=== PATIENT | male | born 1935 | race Two or more races ===

== ENCOUNTER 2019-07-06 02:22 | Observation (INO) | payer MEDICARE ==
[2019-07-06 02:50] LABS: ABS Eosinophils 0.1 10^3/ul (0-0.6); ABS Lymphocytes 1.4 10^3/ul (1.0-4.8); ABS Monocytes 0.6 10^3/ul (0-0.8); ABS Neutrophils 6.4 10^3/ul (1.5-7.7); Eosinophil % 1.7 %; Hematocrit 46 % (42-52); Hemoglobin 15.5 g/dL (14.0-18.0); Lymphocyte % 15.8 %; Mean Corpuscular HGB Conc 34 g/dL (31-36); Mean Corpuscular Hemoglobin 30 pg (27-31); Mean Corpuscular Volume 87 fL (80-94); Mean Platelet Volume 7.2 fL (7.4-10.4); Platelet Count 178 10^3/uL (150-450); Red Blood Count 5.24 10^6 /uL (4.18-5.48); Red Cell Distribution Width 14 % (10-15); White Blood Count 8.6 10^3/uL (3.5-10.8)
--- NOTE | 2019-07-06 02:58 | ED ---
Shortness of Breath - HPI Summary HPI Summary: This patient is an 83 year old M presenting to ED with a chief complaint of SOB since 06/29/19. Patient has SOB when coughing, which is exacerbated by laying supine. Patient was seen [place] [facility] one [place] ago for the same symptoms and prescribed allergy medications. Patient feels that he is not improving with allergy medications. Patient has had seasonal allergies every year around this time living in [place], but this is worse than before. Patient usually exercises regularly, but has since stopped in the past month. Patient is under a lot of stress and has been around hospitals a lot since his is sick. The patient rates the pain 0/10 in severity. Symptoms aggravated by laying supine. Symptoms alleviated by nothing. Patient denies fever. Patient agrees to be admitted for observation. Patient is up to date on tetanus and pertussis. - History of Current Complaint Chief Complaint: EDShortnessOfBreath Time Seen by Provider: 07/06/19 02:32 Hx Obtained From: Patient Onset/Duration: Gradual Onset, Lasting Weeks - Since 06/29/19, Still Present, Worse Since Current Severity: Mild Dyspnea At: Orthopena Aggravating Factors: Recumbent Position Alleviating Factors: Nothing Associated Signs & Symptoms: Negative - Fever, Cough (Nonproductive) - Allergy/Home Medications Allergies/Adverse Reactions: Allergies Allergy/AdvReac Type Severity Reaction Status Date / Time BANDAIDS Allergy Mild MILD SKIN Uncoded 07/06/19 02:28 REDNESS SEASONAL ALLERGY Allergy RUNNY Uncoded 07/06/19 02:28 NOSE, SNEEZING, WATERY EYES PMH/Surg Hx/FS Hx/Imm Hx Musculoskeletal History: Reports: Hx Tendonitis - BILATERAL ELBOWS IN THE PAST, PT TOOK CARE Sensory History: Reports: Hx Cataracts - BILATERAL EYES, Hx Contacts or Glasses - READING GLASSES Denies: Hx Hearing Aid Opthamlomology History: Reports: Hx Cataracts - BILATERAL EYES, Hx Contacts or Glasses - READING GLASSES - Surgical History Surgery Procedure, Year, and Place: COLONOSCOPY EVERY 4 YEARS, [facility] [place]. 09/08/2012 CATARACT EXTRACTION RIGHT EYE WITH IOL IMPLANT, [facility] [place] Hx Anesthesia Reactions: No Infectious Disease History: No Infectious Disease History: Denies: Traveled Outside the [place] in Last 30 Days - Family History Known Family History: Negative: Respiratory Disease - Social History Alcohol Use: None Hx Substance Use: No Substance Use Type: Reports: None Hx Tobacco Use: No Smoking Status (MU): Never Smoked Tobacco Review of Systems Negative: Fever Positive: Shortness Of Breath, Cough All Other Systems Reviewed And Are Negative: Yes Physical Exam - Summary Physical Exam Summary: Constitutional: Well-developed, Well-nourished, Alert. (-) Distressed Skin: Warm, Dry HENT: Normocephalic; Atraumatic Eyes: Conjunctiva normal Neck: Musculoskeletal ROM normal neck. (-) JVD, (-) Stridor, (-) Nuchal rigidity Cardio: Rhythm regular, rate normal, Heart sounds normal; Intact distal pulses; Radial pulses are 2+ and symmetric (-) Murmur Pulmonary/Chest wall: Effort normal. (-) Respiratory distress, (-) Wheezes, (-) Rales Abd: Soft, (-) tenderness, (-) Distension, (-) Guarding, (-) Rebound Musculoskeletal: (-) Edema Lymph: (-) Cervical adenopathy Neuro: Alert, Oriented x3 Psych: Mood and affect Normal Triage Information Reviewed: Yes Vital Signs On Initial Exam: Initial Vitals Temp Pulse Resp BP Pulse Ox 98.0 F 73 20 164/80 97 07/06/19 02:24 07/06/19 02:24 07/06/19 02:24 07/06/19 02:24 07/06/19 02:24 Vital Signs Reviewed: Yes Diagnostics - Vital Signs Vital Signs Temp Pulse Resp BP Pulse Ox 07/06/19 02:24 98.0 F 73 20 164/80 97 - Laboratory Lab Results: Lab Results 07/06/19 Range/Units 02:42 WBC 8.6 (3.5-10.8) 10^3/uL RBC 5.24 (4.18-5.48) 10^6 /uL Hgb 15.5 (14.0-18.0) g/dL Hct 46 (42-52) % MCV 87 (80-94) fL MCH 30 (27-31) pg MCHC 34 (31-36) g/dL RDW 14 (10-15) % Plt Count 178 (150-450) 10^3/uL MPV 7.2 L (7.4-10.4) fL Neut % (Auto) 74.6 % Lymph % (Auto) 15.8 % Duval % (Auto) 7.4 % Eos % (Auto) 1.7 % Baso % (Auto) 0.5 % Absolute Neuts (auto) 6.4 (1.5-7.7) 10^3/ul Absolute Lymphs (auto) 1.4 (1.0-4.8) 10^3/ul Absolute Monos (auto) 0.6 (0-0.8) 10^3/ul Absolute Eos (auto) 0.1 (0-0.6) 10^3/ul Absolute Basos (auto) 0.0 (0-0.2) 10^3/ul Absolute Nucleated RBC 0.0 10^3/ul Nucleated RBC % 0.0 Result Diagrams: 07/06/19 02:42 07/06/19 02:42 Lab Statement: Any lab studies that have been ordered have been reviewed, and results considered in the medical decision making process. - Radiology CXR Radiology Interpretation Completed By: ED Physician Summary of Radiographic Findings: Unchanged from prior, no consolidation, pending official radiology report. - EKG 0256 Cardiac Rate: NL - 68 BPM EKG Rhythm: Sinus Rhythm Summary of EKG Findings: NSR at 68 BPM, RBBB, T wave inversions in lead III and V1. Course/Dx - Course Course Of Treatment: 83-year-old male with seasonal allergies presents with cough and fatigue. Physical exam of the dry cough, lungs clear. Not hypoxic. Differential includes allergic rhinitis, pneumonia, upper respiratory infection. Labs without leukocytosis, sodium 124 without prior history of hyponatremia. Patient denies infectious of water intake, diuretics. States he does not drink lots of water but does not appear dry on exam. Chest x-ray without obvious infiltrate. Will send urine Legionella given cough, hyponatremia and recent hospital exposure with his . Given 1 L of normal saline, send urine electrolytes. Albuterol for persistent cough. Patient is up -to-date on pertussis vaccination, lower suspicion for pertussis. - Diagnoses Provider Diagnoses: Hyponatremia - Physician Notifications Discussed Care of Patient With: Pratibha Shore Time Discussed With Above Provider: 04:24 Instructed by Provider To: Admit As Inpatient - Discussed patient case with Dr. Shore, hospitalist, who accepted the patient for admission to [facility] [place]. Discharge ED - Sign-Out/Discharge Documenting (check all that apply): Patient Departure - Admit Patient Received Moderate/Deep Sedation with Procedure: No - Discharge Plan Condition: Fair Disposition: ADMITTED TO [facility] Referrals: Paul Hardin MD [Primary Care Provider] - - Billing Disposition and Condition Condition: FAIR Disposition: Admitted to [facility] - Attestation Statements Document Initiated by John: Yes Documenting Scribe: Francis Schmidt Provider For Whom John is Documenting (Include Credential): Isabella Lee MD Scribe Attestation: I, Francis Schmidt, scribed for Isabella Lee MD on 07/06/19 at 0442. Scribe Documentation Reviewed: Yes Provider Attestation: The documentation as recorded by the Francis harry accurately reflects the service I personally performed and the decisions made by me, Isabella Lee MD Status of Scribe Document: Viewed
[2019-07-06 03:05] LABS: Albumin 4.3 g/dL (3.2-5.2); Albumin/Globulin Ratio 1.5 (1-3); BUN/Creatinine Ratio 12.1 (8-20); Calcium 9.1 mg/dL (8.6-10.3); EGFR African American 96.8 (>60); Globulin 2.8 g/dL (2-4); Total Bilirubin 0.7 mg/dL (0.2-1.0); Total Protein 7.1 g/dL (6.4-8.9)
[2019-07-06] MEDS ORDERED: Albuterol (2.5 MG) 0.5 % CONC 2.5 MG/0.5 ML NEB.SOLN (ICU and ED only) INH ONE (03:22)
[2019-07-06] MEDS: NS 0.9% 1000 ML** 1,000 ML IV ONE ×2 (03:50→03:51)
[2019-07-06] MEDS ORDERED: GuaiFENesin DM* 5 ML UDC PO PRN (05:22)
[2019-07-06] MEDS ORDERED: Enoxaparin(*) 30 MG/0.3 ML SYR SUBCUT SCH (06:00)
[2019-07-06] MEDS ORDERED: guaiFENesin/CODIEN 100MG-10MG* 5 ML UDC PO SCH (06:00)
--- NOTE | 2019-07-06 07:29 | ADMNOTE ---
Subjective Date of Service: 07/06/19 Interval History: 83 year old male with no medical history presents with 2 weeks history of relentless cough which started first as "allergies". The cough has become distressing to him causing him anxiety and shortness of breath. He has been examined previously and prescribed flonase for allergies. He didnt feel that helped his cough too much. He has never had anything like this before. In the ED , vitals are good but his initial labs showed acute hyponatremia. Pt said his is terminal and lives in a fpc. He has been spending most of his time with her and eats the low-sodium food there. He has medical hx and takes no medications. He denies EDMONDSON, fatigue, diarrhea. Review of Systems - Measurements Intake and Output: Intake and Output Last 24 Hours 07/04/19 07/05/19 07/06/19 07/07/19 06:59 06:59 06:59 06:59 Weight 155 lb - Review of Systems Constitutional Symptoms: Negative: Weight Gain, Weight Loss, Weakness, Fatigue, Fever, Night Sweats, Unexplained Falls, Other Dermatology: Negative: Normal, Rash, Skin Lesions, Cancer, Skin Lumps, Other HEENT: Positive: Sinus Problem Negative: Normal, Change in Hearing, Vertigo, Dental Problems, Tinnitus, Other Eyes: Negative: Normal, Change in Vision, Double Vision, Eye Pain, Glaucoma, Cataract, Contacts or Glasses, Other Thyroid: Positive: Normal Pulmonary: Positive: Cough, Shortness of Breath Cardiology: Negative: Normal, Chest Pain, Shortness of Breath, Palpitations, Swelling of Ankles, Peripheral Vascular Dis, Edema, Faintness, Syncope, Claudication, Proximal NocturnalDyspnea, Orthopnoea, Other Gastroenterology: Negative: Normal, Abdominal Pain, Nausea, Vomiting, Anorexia, Indigestion, Difficulty Swallowing, Heartburn, Constipation, Diarrhea, Blood in Stools, Change in Bowel Habits, Haematemesis, Melena, Other Genital - Urinary: Negative: Normal, Dysuria, Hematuria, Polyuria, Nocturia, Other Musculoskeletal: Negative: Joint Pain, Joint Stiffness, Arthritis, Osteoporosis, Low Back Pain , Sciatica, Joint Deformities, Kyphoscoliosis, Other Neurology: Negative: Normal, Headache, Migraines, Change in Vision, Diplopia, Dizziness , Change in Balancing, Change in Coordination, Change in Memory, Change in Speech, Change in Sphincter Function, Change in Walking, Numbness\\Paresthesiae, Unexplained Weakness, Hx of Stroke\\TIA, Hx of Seizures, Other Psychiatry: Negative: Normal, Depression, Anxiety, Depressed Mood, Anhedonia, Sexual Dysfunction, Weight Change, Guilt Feelings, Tearfulness, Unusual Fatigue, Unusual Anxiety, Suicidal Ideation, Hypomania, Eating Disorders, Other Objective Active Medications: Enoxaparin Sodium (Lovenox(*)) 30 mg SUBCUT Q24H MICK Last Admin: 07/06/19 06:23 Dose: 30 mg Guaifenesin/Dextromethorphan (Robitussin Dm*) 10 ml PO Q6H PRN PRN Reason: COUGH Last Admin: 07/06/19 06:51 Dose: 10 ml Vital Signs - 8 hr 07/06/19 07/06/19 07/06/19 02:24 02:37 02:38 Temperature 98.0 F Pulse Rate 73 75 69 Respiratory 20 Rate Blood Pressure 164/80 165/81 (mmHg) O2 Sat by Pulse 97 96 99 Oximetry 07/06/19 07/06/19 07/06/19 03:08 03:38 04:00 Temperature Pulse Rate 70 65 63 Respiratory Rate Blood Pressure 161/84 134/75 (mmHg) O2 Sat by Pulse 99 98 98 Oximetry 07/06/19 07/06/19 07/06/19 04:09 04:22 04:38 Temperature Pulse Rate 70 72 68 Respiratory 20 Rate Blood Pressure 152/74 133/68 (mmHg) O2 Sat by Pulse 95 99 95 Oximetry 07/06/19 07/06/19 07/06/19 05:00 05:08 05:38 Temperature Pulse Rate 83 71 71 Respiratory Rate Blood Pressure 133/73 133/67 (mmHg) O2 Sat by Pulse 85 95 94 Oximetry 07/06/19 06:14 Temperature 98.9 F Pulse Rate 88 Respiratory 21 Rate Blood Pressure 141/63 (mmHg) O2 Sat by Pulse 94 Oximetry Oxygen Devices in Use Now: None Eyes: No Scleral Icterus Ears/Nose/Mouth/Throat: NL Teeth, Lips, Gums, Clear Oropharnyx, Mucous Membranes Moist Neck: NL Appearance and Movements; NL JVP, Trachea Midline, No Thyroid Enlargement, Masses Respiratory: Symmetrical Chest Expansion and Respiratory Effort, Clear to Auscultation, Clear to Percussion, Clear to Palpation Cardiovascular: NL Sounds; No Murmurs; No JVD Abdominal: NL Sounds; No Tenderness; No Distention Lymphatic: No Cervical Adenopathy Skin: No Rash or Ulcers Neurological: Alert and Oriented x 3 Result Diagrams: 07/06/19 02:42 07/06/19 02:42 Additional Lab and Data: Lab Results 07/06/19 Range/Units 02:42 WBC 8.6 (3.5-10.8) 10^3/uL RBC 5.24 (4.18-5.48) 10^6 /uL Hgb 15.5 (14.0-18.0) g/dL Hct 46 (42-52) % MCV 87 (80-94) fL MCH 30 (27-31) pg MCHC 34 (31-36) g/dL RDW 14 (10-15) % Plt Count 178 (150-450) 10^3/uL MPV 7.2 L (7.4-10.4) fL Neut % (Auto) 74.6 % Lymph % (Auto) 15.8 % Motley % (Auto) 7.4 % Eos % (Auto) 1.7 % Baso % (Auto) 0.5 % Absolute Neuts (auto) 6.4 (1.5-7.7) 10^3/ul Absolute Lymphs (auto) 1.4 (1.0-4.8) 10^3/ul Absolute Monos (auto) 0.6 (0-0.8) 10^3/ul Absolute Eos (auto) 0.1 (0-0.6) 10^3/ul Absolute Basos (auto) 0.0 (0-0.2) 10^3/ul Absolute Nucleated RBC 0.0 10^3/ul Nucleated RBC % 0.0 Assess/Plan/Problems-Billing Assessment: - Patient Problems (1) Hyponatremia Current Visit: Yes Status: Acute Code(s): E87.1 - HYPO-OSMOLALITY AND HYPONATREMIA SNOMED Code(s): 64970706 Comment: acute hyponatremia. Asymptomatic. Likely from low sodium intake. Received fluids in the ED. Holding fluid now until next BMP. Advise to eat regular diet. (2) Cough in adult Current Visit: Yes Status: Acute Code(s): R05 - COUGH SNOMED Code(s): 94478212 Comment: nonproductive cough x 2 weeks with preceding upper respiratory symptoms CXR is clear, likely acute bronchitis. Started on robitussin. Pt would like to have legionella antigen done (3) Full code status Current Visit: Yes Status: Acute Code(s): Z78.9 - OTHER SPECIFIED HEALTH STATUS SNOMED Code(s): 220741886
[2019-07-06 07:38] LABS: Urine Potassium Concentration 61.3 mmol/L
[2019-07-06 07:44] LABS: BUN/Creatinine Ratio 12.7 (8-20); Calcium 8.3 mg/dL (8.6-10.3); EGFR African American 113.9 (>60); EGFR Non-African American 94.1 (>60); Potassium 4.2 mmol/L (3.5-5.0)
[2019-07-06 15:41] VITALS: BP 132/63
--- NOTE | 2019-07-06 17:13 | ECHO ---
*[facility]* [place] [address] Fax #: [phone] Transthoracic Echocardiogram Patient: Paul Love : 1935 Study Date: 07/06/2019 Age: 83 Gender: M HR: 74 bpm Height: 69 in /175.3 cm BSA: 1.85 m^2 Weight: 154.7 lb /70.3 kg BMI: 22.9 kg/m^2 *Librarian Head: * Edith Lawson [facility] *Referring Physician: * Krystian Bowden *Reading Physician: * Myra Damian MD Indications: SOB. History: Hyponatremia,RBBB. Conclusions Summary: - Left ventricle: Systolic function is vigorous. The estimated ejection fraction is 60-65%. Left ventricular diastolic function parameters are normal for the patient's age. - Right ventricle: Systolic function is normal. - All valves show good function. - No prior echocardiogram to compare. Study data: Transthoracic echocardiogram. Procedure: Transthoracic echocardiography was performed. Image quality was good. Complete 2D, spectral Doppler, and color flow Doppler. Patient status: Observation. Patient room number: 419-1. Rhythm: Normal sinus rhythm. Findings Left ventricle: The cavity size is normal. Wall thickness is normal. Systolic function is vigorous. The estimated ejection fraction is 60-65%. Wall motion is normal; there are no regional wall motion abnormalities. Left ventricular diastolic function parameters are normal for the patient's age. Right ventricle: Well visualized. The cavity size is normal. Wall thickness is normal. Systolic function is normal. Ventricular septum: Well visualized. Left atrium: Well visualized. The atrium is normal in size. Right atrium: Well visualized. The atrium is normal in size. Atrial septum: Well visualized. Mitral valve: Well visualized. The leaflets are mildly thickened. No echocardiographic evidence for prolapse. There is no evidence of stenosis. There is trace regurgitation. Aortic valve: Well visualized. The valve is trileaflet. The leaflets are normal thickness and mildly calcified. Cusp separation is normal. There is no evidence of stenosis. There is no significant regurgitation. Tricuspid valve: Well visualized. The leaflets are normal thickness. There is no evidence of stenosis. There is trace regurgitation. Pulmonic valve: Well visualized. The leaflets are normal thickness. There is no evidence of stenosis. There is no significant regurgitation. Aorta: The aorta is well visualized and normal size. The aortic arch appears normal. Pericardium: There is no pericardial effusion. No evidence of pleural fluid accumulation. Pulmonary arteries: Well visualized. Systolic pressure is within the normal range. Systemic veins: Well visualized. Inferior vena cava: There is (>= 50%) respiratory change in the IVC dimension. Pulmonary veins: Visualization of the pulmonary venous anatomy is incomplete, but a significant abnormality is unlikely. Measurements Left ventricle Value Ref Right atrium continued Value Ref NIYAH, LAX 4.9 cm 4.2 - ML dim, ES, A4C 2.7 cm 2.6 - 5.8 4.4 ESD, LAX 3.5 cm 2.5 - SI dim, ES, A4C 3.9 cm 3.4 - 4.0 5.3 FS, LAX 28 % 43 SI dim/bsa, ES, 2.1 cm/m^2 1.8 - PW, ED, LAX 0.8 cm 0.6 - A4C 3.0 1.0 Estimated RAP 3 mm Hg -------- FS 28 % Mid-wall FS 16 % -------- Aortic valve Value Ref PW, ED 0.8 cm 0.6 - Pilar diam, ED 2.2 cm -------- 1.0 Pilar diam/bsa, ED 1.2 cm/m^2 -------- PW/ID, ED 0.16 -------- Peak v, S 1.32 m/sec -------- E', lat pilar, TDI 12.2 cm/sec >=10.0 VTI, S 28.9 cm - ------- E/e', lat pilar, TDI 6 -------- Mean grad, S 4.0 mm Hg ---- ---- E', med pilar, TDI 9.3 cm/sec >=7.0 Peak grad, S 7.0 mm Hg - ------- E/e', med pilar, TDI 8 -------- LVOT/AV, VTI ratio 0.77 ---- ---- E', avg, TDI 10.8 cm/sec -------- E/e', avg, TDI 7 <=14 Mitral valve Value R ef Peak E 0.77 m/sec -------- LVOT Value Ref Peak A 0.95 m/sec -------- Peak cathi, S 1.09 m/sec -------- Decel time 215 ms -------- VTI, S 22.3 cm -------- Peak grad, D 2.4 mm Hg -------- Mean grad, S 2 mm Hg -------- Peak E/A ratio 0.8 -------- Ventricular septum Value Ref Pulmonic valve Value Ref IVS, ED 0.7 cm 0.6 - Peak v, S 0.96 m/sec -------- 1.0 Peak grad, S 4.0 mm Hg -------- Right ventricle Value Ref Aortic root Value Ref NIYAH, LAX 3.0 cm -------- Root diam 3.2 cm <4.0 NIYAH minor ax, A4C 2.8 cm 1.9 - Root max diam, ED 3.2 cm <4.0 mid 3.5 Aortic arch Value Ref Left atrium Value Ref Arch diam 2.2 cm -------- ML dim, A4C 2.8 cm -------- SI dim, A4C 3.7 cm -------- Decending aorta Value Ref Vol/bsa, ES, 1-p 14 ml/m^2 12 - 37 Daljit peak cathi 0.85 m/sec -------- A4C Vol/bsa, ES, A/L 23 ml/m^2 16 - 34 Right atrium Value Ref SI dim, ES 3.9 cm 3.4 - 5.3 Legend: (L) and (H) naima values outside specified reference range. Prepared and electronically signed by Myra Damian MD 07/06/2019 17:12
--- NOTE | 2019-07-06 20:47 | DS ---
CC: Dr. Hardin* DISCHARGE SUMMARY: DATE OF ADMISSION: 07/06/19 DATE OF DISCHARGE: 07/06/19 PRIMARY CARE PROVIDER: Dr. Paul Hardin. DISPOSITION ON DISCHARGE: Home. CONDITION ON DISCHARGE: Good. PRIMARY DIAGNOSIS: Unrelenting cough. SECONDARY DIAGNOSIS: Includes hyponatremia. MEDICATIONS ON DISCHARGE: Include: 1. Cetirizine 10 mg daily. 2. Flonase 2 sprays both nares daily. 3. Guaifenesin with dextromethorphan long acting 1 each every 12 hours. PERTINENT LABORATORY DATA DURING THIS ADMISSION: Sodium 124 on presentation, on discharge 127 after IV fluids. His BNP is 70. PERTINENT IMAGING DURING THIS ADMISSION: Transthoracic echocardiogram, impression: Left ventricular systolic function is vigorous. Estimated ejection fraction is 60% to 65%. LV diastolic function is normal for age. Right ventricular systolic function is normal. All valves show good function. No prior echocardiogram to compare to. HISTORY OF PRESENT ILLNESS AND HOSPITAL COURSE: This is an 83-year-old gentleman, relatively healthy, who does suffer from seasonal allergies and generally develops several weeks of cough with other sinus congestion around this time of the year. He states like clockwork over the last 40 years, he develops these symptoms again. Approximately 1 week prior, he saw his PCP and was started on cetirizine; however, did not improve. He returned to the emergency room. Because he has been visiting his at a subacute group home where she is currently actively dying on hospice, he felt that he was exposed to other illnesses from the other residents who had been coughing and he was concerned that he might have been sicker than usual. The cough has been similar to his previous coughs over the last decade; however, this one he felt was a little bit more severe in that he suffered from paroxysms of coughing and when he was coughing very heavily, it was hard for him to take a deep breath, though he did deny shortness of breath at rest or with ambulation and he had no evidence of hypoxia during the hospital stay. On my exam, he did have faint rales in his left base. No evidence of pneumonia was present on chest x-ray. I did have a concern for a possible early CHF exacerbation, although he has no known CHF history, neither diastolic nor systolic. For this reason, I checked a transthoracic echocardiogram, which was normal as indicated above. The patient was started on guaifenesin in the hospital. On discharge, to continue guaifenesin, although I see no prescriptions available [id number] for guaifenesin alone and so I have included Mucinex as well. The patient did not want to wait for his echocardiogram results, which I felt was appropriate. He was feeling well and he wanted to spend time with his , so he does not have the results as indicated above. If the patient's cough should continue and/or worsen, I would consider pneumonia as the etiology that has not yet blossomed or is seen on chest x-ray. He does have no laboratory evidence to support infectious etiology at this time either. At followup, please: 1. Evaluate for resolution of symptoms. 2. Consider repeat BMP for continued resolution of hyponatremia. 3. No other specific labs or vitals that need followup. Reasons to return to the hospital including, but not limited to recurrent or worsening symptoms, including worsening cough, fevers, chills, night sweats, chest pain, shortness of breath, nausea, vomiting, loss of consciousness, or near loss of consciousness were discussed with the patient and he acknowledged understanding. TIME SPENT: Greater than 45 minutes were spent on the discharge of this patient , greater than half was spent [id number] with the patient. [id number]/[facility] #: [id number]
== END 2019-07-06 16:05 | disposition home or self-care (01) ==
LOC: ED 02:22 → MED 05:10 → INTOOBSV 05:10
PROVIDERS: ADMIT Student in an Organized Health Care Education/Training Program; ATTEND Internal Medicine
DX: R05 Cough (principal); R06.02 Shortness of breath; E87.1 Hypo-osmolality and hyponatremia; Z79.899 Other long term (current) drug therapy; R94.31 Abnormal electrocardiogram [ECG] [EKG]
CPT/HCPCS: 36415; 71046; 80048; 80053; 82436; 83880; 84133; 84300; 85025; 87899; 93005; 93306; 99283; A9270-GY; G0378; J1650; J7611

== ENCOUNTER 2021-04-20 22:52 | Observation (INO) ==
[2021-04-20] MEDS ORDERED: NS 0.9% 1000 ml BAG 1,000 ML IV ONE (23:26)
[2021-04-20 23:50] LABS: ABS Lymphocytes 0.4 10^3/ul (1.0-4.8); ABS Monocytes 0.4 10^3/ul (0-0.8); ABS Neutrophils 4.8 10^3/ul (1.5-7.7); Hematocrit 41 % (42-52); Hemoglobin 13.8 g/dL (14.0-18.0); Lymphocyte % 7.1 %; Mean Corpuscular HGB Conc 34 g/dL (31-36); Mean Corpuscular Hemoglobin 29 pg (27-31); Mean Corpuscular Volume 86 fL (80-94); Mean Platelet Volume 7.6 fL (7.4-10.4); Platelet Count 135 10^3/uL (150-450); Red Cell Distribution Width 14 % (10-15); White Blood Count 5.6 10^3/uL (3.5-10.8)
[2021-04-20 23:57] LABS: INR 1.24 (0.82-1.09)
[2021-04-20 23:58] LABS: Albumin 3.8 g/dL (3.2-5.2); Anion Gap 9 mmol/L (2-11); CO2 Carbon Dioxide 22 mmol/L (22-32); Calcium 8.2 mg/dL (8.6-10.3); Chloride 94 mmol/L (101-111); Potassium 3.9 mmol/L (3.5-5.0); Sodium 125 mmol/L (135-145)
[2021-04-21 00:04] LABS: ALT 22 U/L (7-52); AST 76 U/L (13-39); Albumin/Globulin Ratio 1.3 (1-3); Alkaline Phosphatase 55 U/L (35-149); Blood Urea Nitrogen 27 mg/dL (6-24); Cholesterol 152 mg/dL; EGFR African American 63.8 (>60); EGFR Non-African American 52.7 (>60); Glucose 160 mg/dL (70-100); HDL Cholesterol 49.5 mg/dL; LDL Cholesterol 86 mg/dL; Total Protein 6.8 g/dL (6.4-8.9); Triglycerides 83 mg/dL
[2021-04-21 00:19] LABS: Troponin I 0.05 ng/mL (<0.03)
[2021-04-21] MEDS ORDERED: Iodixanol (CONTRAST) 320 MG/ML 100 ML SDV IV ONE (00:43)
[2021-04-21 02:46] LABS: Magnesium 1.8 mg/dL (1.9-2.7)
[2021-04-21 02:48] LABS: Urine Appearance Cloudy; Urine Bilirubin Negative (Negative); Urine Blood 2+ (Negative); Urine Color Yellow; Urine Glucose Negative (Negative); Urine Ketones Trace (Negative); Urine Nitrite Negative (Negative); Urine Protein 1+(30 mg/dL) (Negative); Urine Specific Gravity 1.014 (1.002-1.030); Urine Urobilinogen Negative (Negative)
[2021-04-21 02:52] LABS: Urine Bacteria Absent (Absent); Urine Red Blood Cell Trace(0-2/hpf) (Absent); Urine Squamous Epithelial Cell Present (Absent); Urine White Blood Cell Trace(0-5/hpf) (Absent)
[2021-04-21 03:11] LABS: Urine Potassium Concentration 51.4 mmol/L
[2021-04-21] MEDS ORDERED: NS 0.9% 1000 ml BAG 1,000 ML IV SCH (05:00)
[2021-04-21 05:25] LABS: Urine Creatinine Concentration 105.29 mg/dL
[2021-04-21 09:44] LABS: Troponin I 0.05 ng/mL (<0.03)
[2021-04-21 12:28] LABS: Troponin I 0.05 ng/mL (<0.03)
[2021-04-21 14:04] LABS: Calcium 7.2 mg/dL (8.6-10.3); Potassium 3.8 mmol/L (3.5-5.0)
[2021-04-21 14:10] LABS: EGFR African American 85.4 (>60); EGFR Non-African American 70.5 (>60)
[2021-04-22 11:28] LABS: Calcium 7.7 mg/dL (8.6-10.3); EGFR African American 85.4 (>60); EGFR Non-African American 70.5 (>60); Potassium 3.7 mmol/L (3.5-5.0)
[2021-04-22 12:19] VITALS: BP 118/53
== END 2021-04-22 14:50 | disposition home or self-care (01) ==
LOC: ED 22:52 → MEDTELE 22:52
PROVIDERS: ADMIT Student in an Organized Health Care Education/Training Program; ATTEND Hospitalist

== ENCOUNTER 2021-05-06 16:09 | Inpatient (IN) ==
[2021-05-06 18:26] LABS: Hematocrit 35 % (42-52); Hemoglobin 12.1 g/dL (14.0-18.0); Mean Corpuscular HGB Conc 35 g/dL (31-36); Mean Corpuscular Hemoglobin 29 pg (27-31); Mean Corpuscular Volume 84 fL (80-94); Mean Platelet Volume 8.2 fL (7.4-10.4); Platelet Count 72 10^3/uL (150-450); Red Blood Count 4.14 10^6 /uL (4.18-5.48); Red Cell Distribution Width 14 % (10-15)
[2021-05-06 18:34] LABS: Albumin 2.7 g/dL (3.2-5.2); Albumin/Globulin Ratio 0.9 (1-3); Calcium 7.4 mg/dL (8.6-10.3); EGFR African American 77.4 (>60); EGFR Non-African American 63.9 (>60); Globulin 2.9 g/dL (2-4); Potassium 3.7 mmol/L (3.5-5.0); Total Bilirubin 0.9 mg/dL (0.2-1.0); Total Protein 5.6 g/dL (6.4-8.9)
[2021-05-06 18:35] LABS: Troponin I 0.01 ng/mL (<0.03)
[2021-05-06 18:48] LABS: ABS Lymphocytes 1.2 10^3/ul (1.0-4.8); ABS Monocytes 0.5 10^3/ul (0-0.8); ABS Neutrophils 3.4 10^3/ul (1.5-7.7); Eosinophil % 0.1 %
[2021-05-06] MEDS ORDERED: NS 0.9% 1000 ml BAG 1,000 ML IV SCH (20:15)
[2021-05-06] MEDS ORDERED: cefTRIAXone 1 gm/50 mL NS BAG 1 GM/50 ML BAG IVPB SCH (21:00)
[2021-05-06] MEDS ORDERED: NS 0.9% 250 ml 250 ML ONE ×2 (21:06)
[2021-05-06 21:09] LABS: Urine Appearance Cloudy; Urine Bilirubin Negative (Negative); Urine Blood 1+ (Negative); Urine Color Amber; Urine Glucose Negative (Negative); Urine Ketones Trace (Negative); Urine Nitrite Negative (Negative); Urine Protein 1+(30 mg/dL) (Negative); Urine Specific Gravity 1.016 (1.002-1.030); Urine Urobilinogen Positive (Negative)
[2021-05-06 21:27] LABS: Urine Bacteria Absent (Absent); Urine Red Blood Cell 1+(3-5/hpf) (Absent); Urine White Blood Cell Trace(0-5/hpf) (Absent)
[2021-05-06 21:47] LABS: Influenza A Molecular Negative (Negative); Influenza B Molecular Negative (Negative)
[2021-05-06] MEDS: DOXYcycline 100 MG in NS 0.9% 250 ml 250 ML IVPB SCH (21:59)
[2021-05-06 22:00] LABS: TSH Ultra Thyroid Stim Horm 1.76 mcIU/mL (0.34-5.60)
[2021-05-07 00:06] LABS: Ferritin 505.7 ng/mL (24-336)
[2021-05-07 06:08] LABS: INR 1.29 (0.86-1.15)
[2021-05-07 06:10] LABS: ABS Lymphocytes 1.2 10^3/ul (1.0-4.8); ABS Monocytes 0.5 10^3/ul (0-0.8); ABS Neutrophils 2.7 10^3/ul (1.5-7.7); Eosinophil % 0.1 %; Hematocrit 33 % (42-52); Hemoglobin 11.4 g/dL (14.0-18.0); Lymphocyte % 27.6 %; Mean Corpuscular HGB Conc 34 g/dL (31-36); Mean Corpuscular Hemoglobin 29 pg (27-31); Mean Corpuscular Volume 85 fL (80-94); Nucleated Red Blood Cells % 0.1; Platelet Count 66 10^3/uL (150-450); Red Blood Count 3.95 10^6 /uL (4.18-5.48); Red Cell Distribution Width 14 % (10-15); White Blood Count 4.5 10^3/uL (3.5-10.8)
[2021-05-07 06:22] LABS: Calcium 7.2 mg/dL (8.6-10.3); EGFR African American 87.4 (>60); EGFR Non-African American 72.2 (>60); Potassium 3.5 mmol/L (3.5-5.0)
[2021-05-07] MEDS ORDERED: Potassium Chlor 20 meq TAB.ER PO ONE (06:49)
[2021-05-07] MEDS ORDERED: KCL 10 MEQ/50 ML IVPREMIX 10 MEQ/50 ML BAG IV ONE (06:49)
[2021-05-07] MEDS: DOXYcycline 100 MG in NS 0.9% 250 ml 250 ML IVPB SCH ×2 (09:26→21:19)
[2021-05-08 05:34] LABS: Hematocrit 34 % (42-52); Hemoglobin 11.7 g/dL (14.0-18.0); Mean Corpuscular HGB Conc 35 g/dL (31-36); Mean Corpuscular Hemoglobin 29 pg (27-31); Mean Corpuscular Volume 85 fL (80-94); Mean Platelet Volume 7.9 fL (7.4-10.4); Platelet Count 90 10^3/uL (150-450); Red Blood Count 3.99 10^6 /uL (4.18-5.48); Red Cell Distribution Width 14 % (10-15); White Blood Count 5.1 10^3/uL (3.5-10.8)
[2021-05-08 05:51] LABS: Calcium 7.6 mg/dL (8.6-10.3); EGFR African American 116.7 (>60); EGFR Non-African American 96.5 (>60); Potassium 4.3 mmol/L (3.5-5.0)
[2021-05-08] MEDS: DOXYcycline 100 MG in NS 0.9% 250 ml 250 ML IVPB SCH (08:21)
[2021-05-08 16:29] VITALS: BP 128/64
[2021-05-09 17:22] LABS: Anaplasma phagocytophilum Positive (Negative); B. miyamotoi PCR, B Negative (Negative); Babesia divergens/MO-1 Negative (Negative); Babesia ducani Negative (Negative); Ehrlichia chaffeensis Negative (Negative); Ehrlichia ewingii/canis Negative (Negative); Ehrlichia muris eauclairensis Negative (Negative)
[2021-05-09 23:49] LABS: IgG Immunoblot Negative (Negative); IgM Immunoblot Negative (Negative)
== END 2021-05-08 17:00 | disposition home or self-care (01) | DRG 866 ==
LOC: ED 16:09 → MED 22:23
PROVIDERS: ADMIT Internal Medicine; ATTEND Internal Medicine